=== PATIENT | female | born 1975 | race African-American/Black ===

== ENCOUNTER 2016-06-13 18:19 | Emergency (ER) | payer OTHER ==
[2016-06-13 18:25] VITALS: BP 101/60; PULSE 61; TEMP 98.1; BMI 23.2
--- NOTE | 2016-06-13 18:29 | PDOC ---
Rapid Medical Evaluation Chief Complaint: Vomiting/Diarrhea Time Seen by Provider: 06/13/16 18:24 Medical Evaluation: Allergies Allergy/AdvReac Type Severity Reaction Status Date / Time No Known Allergies Allergy Verified 06/13/16 18:25 Vital Signs Temp Pulse Resp BP Pulse Ox 98.1 F 61 20 101/60 100 06/13/16 18:21 06/13/16 18:21 06/13/16 18:21 06/13/16 18:21 06/13/16 18:21 06/13/16 18:26 I have performed a brief in-person evaluation of this patient. The patient presents with a chief complaint of: ABD pain and cramping/ diarhea x 2 weeks intermittant/ no fevers/ no recent travel/ no food ingestion Pertinent physical exam findings: well nontoxic I have ordered the following: ua/ucg/urine culture The patient will proceed to the ED for further evaluation.
[2016-06-13 19:01] LABS: URINE APPEARANCE CLOUDY; URINE BILIRUBIN NEGATIVE (NEGATIVE); URINE BLOOD NEGATIVE (NEGATIVE); URINE COLOR YELLOW; URINE GLUCOSE (UA) NEGATIVE (NEGATIVE); URINE KETONE NEGATIVE (NEGATIVE); URINE LEUK ESTERASE NEGATIVE (NEGATIVE); URINE NITRITE NEGATIVE (NEGATIVE); URINE PROTEIN NEGATIVE (NEGATIVE); URINE UROBILINOGEN 2.0 E.U/dl E.U./dl (0.2-1.0)
--- NOTE | 2016-06-13 19:49 | PDOC ---
History of Present Illness - General History Source: Patient, Old Records Exam Limitations: No Limitations - History of Present Illness Initial Comments: 06/13/16 20:10 The patient is a 40 year old female, A0, with a significant past medical history of asthma, who presents to the emergency department with abdominal pain , nausea vomiting and diarrhea for the past 2 weeks. She describes her abdominal pain as a cramping sensation, without radiation or modifying factors. She notes that she has not been able to keep much of her PO intake down. She notes that her vomit is non bilious and non bloody. She also notes that her diarrhea is watery and nonbloody, with her last bowel movement being 2 days ago. Upon evaluation, the patient was informed that urine results are positive for . She notes that this is an undesired and will terminate. The patient denies chest pain, shortness of breath, headache and dizziness. Denies fever, chills and constipation. Denies dysuria, frequency, urgency and hematuria. Allergies: None Past surgical history: None reported Social history: No alcohol, tobacco or drug use reported <Td Hernandez - Last Filed: 06/13/16 20:10> <Stephon Naranjo - Last Filed: 06/13/16 23:02> - General Chief Complaint: Vomiting/Diarrhea Stated Complaint: VOMITING/DIARRHEA Time Seen by Provider: 06/13/16 18:24 Past History <Td Hernandez - Last Filed: 06/13/16 20:10> - Past Medical History Anemia: No Asthma: Yes Cancer: No Cardiac Disorders: No CVA: No COPD: No CHF: No Dementia: No Diabetes: No GI Disorders: Yes (NAUSEA, VOMITING) Disorders: No HTN: No Hypercholesterolemia: No Liver Disease: No Seizures: No Thyroid Disease: No - Surgical History Abdominal Surgery: No Appendectomy: No Cardiac Surgery: No Cholecystectomy: No Lung Surgery: No Neurologic Surgery: No Orthopedic Surgery: No - Psycho/Social/Smoking Cessation Hx Anxiety: No Suicidal Ideation: No Smoking Status: No Smoking History: Never smoked Have you smoked in the past 12 months: No Number of Cigarettes Smoked Daily: 0 Hx Alcohol Use: Yes (SOCIAL) Drug/Substance Use Hx: No Substance Use Type: None Hx Substance Use Treatment: No <Stephon Naranjo - Last Filed: 06/13/16 23:02> - Past Medical History Allergies/Adverse Reactions: Allergies Allergy/AdvReac Type Severity Reaction Status Date / Time No Known Allergies Allergy Verified 06/13/16 18:25 Home Medications: Ambulatory Orders Albuterol Sulfate Inhaler - [Ventolin HFA Inhaler -] 1 inh PO PRN PRN 07/29/14 Cyclobenzaprine HCl [Flexeril -] 1 tab PO PRN PRN 07/29/14 Ibuprofen [Motrin -] 1 tab PO PRN PRN #0 08/26/14 Ondansetron [Zofran Odt -] 4 mg SL TID #21 od.tablet 06/13/16 Review of Systems - Review of Systems Able to Perform ROS?: Yes Comments:: 06/13/16 20:10 GENERAL/CONSTITUTIONAL: No fever or chills. No weakness. HEAD, EYES, EARS, NOSE AND THROAT: No change in vision. No ear pain or discharge. No sore throat. CARDIOVASCULAR: No chest pain or shortness of breath RESPIRATORY: No cough, wheezing, or hemoptysis. GASTROINTESTINAL: +Abdominal pain, nausea, vomiting, diarrhea. No constipation. GENITOURINARY: No dysuria, frequency, or change in urination. MUSCULOSKELETAL: No joint or muscle swelling or pain. No neck or back pain. SKIN: No rash NEUROLOGIC: No headache, vertigo, loss of consciousness, or change in strength/ sensation. ENDOCRINE: No increased thirst. No abnormal weight change HEMATOLOGIC/LYMPHATIC: No anemia, easy bleeding, or history of blood clots. ALLERGIC/IMMUNOLOGIC: No hives or skin allergy. <Td Hernandez - Last Filed: 06/13/16 20:10> *Physical Exam - Vital Signs Last Vital Signs Temp Pulse Resp BP Pulse Ox 98.1 F 61 20 101/60 100 06/13/16 18:21 06/13/16 18:21 06/13/16 18:21 06/13/16 18:21 06/13/16 18:21 - Physical Exam Comments: 06/13/16 20:10 GENERAL: Awake, alert, and fully oriented, in no acute distress HEAD: No signs of trauma, normocephalic, atraumatic EYES: PERRLA, EOMI, sclera anicteric, conjunctiva clear ENT: Auricles normal inspection, hearing grossly normal, nares patent, oropharynx clear without exudates. Moist mucosa NECK: Normal ROM, supple, no lymphadenopathy, JVD, or masses LUNGS: No distress, speaks full sentences, clear to auscultation bilaterally HEART: Regular rate and rhythm, normal S1 and S2, no murmurs, rubs or gallops, peripheral pulses normal and equal bilaterally. ABDOMEN: +Mild suprapubic and left pelvic tenderness. Soft, normoactive bowel sounds. No guarding, no rebound. No masses EXTREMITIES: Normal inspection, Normal range of motion, no edema. No clubbing or cyanosis. NEUROLOGICAL: Cranial nerves II through XII grossly intact. Normal speech, normal gait, no focal sensorimotor deficits SKIN: Warm, Dry, normal turgor, no rashes or lesions noted. <Td Hernandez - Last Filed: 06/13/16 20:10> - Vital Signs Last Vital Signs Temp Pulse Resp BP Pulse Ox 98.1 F 61 20 101/60 100 06/13/16 18:21 06/13/16 18:21 06/13/16 18:21 06/13/16 18:21 06/13/16 18:21 <Stephon Naranjo - Last Filed: 06/13/16 23:02> ED Treatment Course - ADDITIONAL ORDERS Additional order review: Laboratory Results 06/13/16 18:40 Urine Color Yellow Urine Appearance Cloudy Urine pH 7.0 Ur Specific [place] 1.018 Urine Protein Negative Urine Glucose (UA) Negative Urine Ketones Negative Urine Blood Negative Urine Nitrite Negative Urine Bilirubin Negative Urine Urobilinogen 2.0 e.u/dl H Ur Leukocyte Esterase Negative Urine HCG, Qual Positive <Td Hernandez - Last Filed: 06/13/16 20:10> - LABORATORY CBC & Chemistry Diagram: 06/13/16 20:56 06/13/16 20:56 - ADDITIONAL ORDERS Additional order review: Laboratory Results 06/13/16 18:40 Urine Color Yellow Urine Appearance Cloudy Urine pH 7.0 Ur Specific [place] 1.018 Urine Protein Negative Urine Glucose (UA) Negative Urine Ketones Negative Urine Blood Negative Urine Nitrite Negative Urine Bilirubin Negative Urine Urobilinogen 2.0 e.u/dl H Ur Leukocyte Esterase Negative Urine HCG, Qual Positive <Stephon Naranjo - Last Filed: 06/13/16 23:02> Medical Decision Making - Medical Decision Making 06/13/16 22:57 Patient is well-appearing 40-year-old female, 5 para 4, who presents with persistent nausea, and numerous bouts of nonbloody, nonbilious vomiting for the past 2 weeks. Patient's symptoms also included diarrhea which has now resolved. In the ER, patient is awake and alert, nontoxic appearing, with normal stable vital signs. Serial abdominal exams reveal no focal tenderness, there is no guarding rebound. CBC reveals significant anemia which the patient reports is chronic and is currently being investigated by Dr. Jeovanny Stephen of GI. CMP is within normal limit without evidence of acute electrolyte abnormalities. Patient has received Zofran, Pepcid, 1 L of D5 normal saline and reports improvement in level of her nausea. Patient tolerates by mouth. I've advised the patient to restart iron supplementation at this time. Will discharge with sublingual Zofran with [employer] follow-up. Patient reports that is not desirable she will most likely considered termination. <Stephon Naranjo - Last Filed: 06/13/16 23:02> *DC/Admit/Observation/Transfer - Attestations Scribe Attestion: 06/13/16 20:11 Documentation prepared by Td Hernandez, acting as senior medical writer for Stephon Naranjo MD <Td Hernandez - Last Filed: 06/13/16 20:10> - Attestations Physician Attestion: 06/13/16 22:57 The documentation was prepared by the scribe under my direct supervision. I have reviewed the documentation which correctly represents the findings, medical decision-making and critical action taken by me. <Stephon Naranjo - Last Filed: 06/13/16 23:02> Diagnosis at time of Disposition: Hyperemesis gravidarum - Discharge Dispostion Disposition: HOME Condition at time of disposition: Stable - Referrals Referrals: Ana Maria Herrera MD [Primary Care Provider] - Kal Marie MD [Staff Physician] - - Patient Instructions Printed Discharge Instructions: DI for Hyperemesis Gravidarum
[2016-06-13] MEDS ORDERED: FAMOTIDINE 20 MG/50 ML IVPB 50 ML IVPB ONE ×2 (19:58→20:17)
[2016-06-13] MEDS ORDERED: DEXTROSE 5%-NORMAL SALINE 1,000 ML IV ONE (19:58)
[2016-06-13] MEDS ORDERED: ONDANSETRON 4 MG/2 ML VIAL IVPUSH ONE (19:58)
[2016-06-13] MEDS ORDERED: ONDANSETRON 4 MG/2 ML VIAL ONE (20:16)
[2016-06-13 21:24] LABS: BASOPHIL 2.4 % (0-2.0); EOSINOPHIL 3.4 % (0-4.5); MCHC 30.9 g/dl (32.0-36.0); MEAN CELL VOLUME 63.2 fl (80-96); MEAN PLT VOLUME 9.1 fl (7.5-11.1); NEUTROPHILS 50.9 % (42.8-82.8); PLATELET COUNT 387 K/MM3 (134-434); RDW 22.3 % (11.6-15.6); WHITE BLOOD COUNT 4.1 K/mm3 (4.0-10.0)
[2016-06-13 21:32] LABS: MCH 19.5 pg (25.7-33.7)
[2016-06-13 22:09] LABS: ALBUMIN 3.4 g/dl (3.4-5.0); ANION GAP 8 (8-16); BILIRUBIN,TOTAL 0.2 mg/dL (0.2-1.0); CALCIUM 8.4 mg/dL (8.5-10.1); CO2 28 mmol/L (21-32); CREATININE 0.6 mg/dL (0.55-1.02); GLUCOSE,RANDOM 82 mg/dL (74-106); MAGNESIUM 2.1 mg/dL (1.8-2.4); SGOT/AST 12 U/L (15-37); SGPT/ALT 12 U/L (12-78); TOT PROT 7.3 g/dl (6.4-8.2)
[2016-06-13 22:10] LABS: ALK PHOS 103 U/L (45-117)
[2016-06-13 22:29] LABS: HYPOCHROMIA 3+; PLATELET ESTIMATE ADEQUATE (NORMAL); POIKILOCYTOSIS 1+
[2016-06-13 22:30] LABS: ANISOCYTOSIS 3+; FRAGMENTED CELL 1+; MICROCYTOSIS 2+; OVALOCYTES 1+
== END 2016-06-13 23:10 | disposition home or self-care (01) ==
LOC: JER 18:19
PROC: 3E033GC Introduction of Other Therapeutic Substance into Peripheral Vein, Percutaneous Approach (ICD-10-PCS; principal; 2016-06-13)
DX: O21.0 Mild hyperemesis gravidarum (principal); J45.909 Unspecified asthma, uncomplicated
CPT/HCPCS: 36415; 80053; 81003; 83735; 84703; 85025; 87086; 99283-25

== ENCOUNTER 2020-08-18 14:07 | Emergency (ER) | payer OTHER ==
[2020-08-18 14:31] VITALS: BP 93/59; PULSE 91; BMI 22.6
== END 2020-08-18 15:45 | disposition home or self-care (01) ==
LOC: JERFT 14:07
DX: N77.1 Vaginitis, vulvitis and vulvovaginitis in diseases classified elsewhere (principal)
CPT/HCPCS: 36415; 87070; 87077; 87205; 87491; 87591; 87661; 99283-25

== ENCOUNTER 2024-06-30 18:45 | Observation (INO) | payer OTHER ==
[2024-06-30 18:52] VITALS: BMI 17.6
[2024-06-30] MEDS ORDERED: PANTOPRAZOLE SODIUM 40 MG VIAL ONE (20:20)
[2024-06-30] MEDS: PANTOPRAZOLE SODIUM 40 MG VIAL IVPUSH ONE (20:48)
[2024-06-30 20:53] LABS: ABSOLUTE IMMATURE GRANULOCYTES 0.01 x10^3/uL (0.0-0.031); BASOPHILS # 0.06 x10^3/uL (0.01-0.08); EOSINOPHIL % 2.4 % (0.7-5.8); EOSINOPHILS # 0.12 x10^3/uL (0.04-0.36); HEMOGLOBIN 6.4 g/dL (11.2-15.7); MCHC 25.6 g/dl (32.2-35.5); MEAN CELL VOLUME 57.2 fl (79.4-94.8); MONOCYTE # 0.79 x10^3/uL (0.24-0.86); MONOCYTE % 15.6 % (4.7-12.5); PLATELET COUNT 565 x10^3/uL (182-369); RDW 23.3 % (12.2-17.1)
[2024-06-30 21:05] LABS: INR 1.28 (0.83-1.09)
[2024-06-30 21:06] LABS: ACTIVATED PTT 31.8 SECONDS (25.2-36.5)
[2024-06-30 21:17] LABS: POTASSIUM 3.8 mmol/L (3.5-5.1)
[2024-06-30 21:21] LABS: ALBUMIN 3.6 g/dl (3.4-5.0); BLOOD UREA NITROGEN 15.1 mg/dL (7-18); CALCIUM 8.7 mg/dL (8.5-10.1)
[2024-06-30 21:31] LABS: BILIRUBIN,TOTAL 0.3 mg/dL (0.2-1); CREATININE 0.8 mg/dL (0.55-1.3); TOT PROT 8.2 g/dl (6.4-8.2)
[2024-07-01] MEDS ORDERED: CycloBENZAprine HCL 10 MG TABLET (FP) PO PRN (01:09)
[2024-07-01] MEDS ORDERED: ALBUTEROL SO4 0.083% IH SOL 2.5 MG/3 ML VIAL.NEB. NEB PRN (01:09)
[2024-07-01 09:29] LABS: HEMATOCRIT 29.3 % (34.1-44.9); HEMOGLOBIN 7.6 g/dL (11.2-15.7); MCHC 25.9 g/dl (32.2-35.5); MEAN CELL VOLUME 61.6 fl (79.4-94.8); MEAN PLT VOLUME 9.2 fl (9.4-12.3); PLATELET COUNT 529 x10^3/uL (182-369); RDW 27.3 % (12.2-17.1)
[2024-07-01 09:30] LABS: Reticulocyte % 0.41 % (0.5-1.7)
[2024-07-01 10:05] LABS: ALBUMIN 3.6 g/dl (3.4-5.0); BLOOD UREA NITROGEN 11.7 mg/dL (7-18); CALCIUM 8.9 mg/dL (8.5-10.1)
[2024-07-01 10:08] LABS: CREATININE 0.6 mg/dL (0.55-1.3)
[2024-07-01 10:09] LABS: PHOSPHOROUS 3.4 mg/dL (2.5-4.9)
[2024-07-01 10:10] LABS: BILIRUBIN,TOTAL 0.7 mg/dL (0.2-1); TOT PROT 8.4 g/dl (6.4-8.2)
[2024-07-01] MEDS: PANTOPRAZOLE SODIUM 40 MG VIAL IVPUSH SCH (11:05)
[2024-07-01] MEDS: FAMOTIDINE 20 MG TABLET PO SCH (11:06)
[2024-07-01] MEDS: SODIUM CHLORIDE 1,000 ML IV SCH (11:11)
[2024-07-01] MEDS: POLYETHYLENE GLYCOL (HEALTHYLAX) 3350 17 GM PACKET PO SCH (13:32)
[2024-07-01] MEDS: BISACODYL 5 MG TABLET.DR (FP) PO ONE (18:36)
[2024-07-01] MEDS: PEG 3350/NA SULF BICARB CL/KCL 4000 ML SOLN.RECON PO ONE (18:43)
[2024-07-02 10:00] LABS: ABSOLUTE IMMATURE GRANULOCYTES 0.01 x10^3/uL (0.0-0.031); BASOPHILS # 0.07 x10^3/uL (0.01-0.08); EOSINOPHIL % 4.7 % (0.7-5.8); EOSINOPHILS # 0.15 x10^3/uL (0.04-0.36); HEMATOCRIT 27.3 % (34.1-44.9); HEMOGLOBIN 7.3 g/dL (11.2-15.7); MCHC 26.7 g/dl (32.2-35.5); MEAN CELL VOLUME 60.7 fl (79.4-94.8); MEAN PLT VOLUME 9.4 fl (9.4-12.3); MONOCYTE # 0.46 x10^3/uL (0.24-0.86); MONOCYTE % 14.5 % (4.7-12.5); PLATELET COUNT 482 x10^3/uL (182-369); RDW 27.1 % (12.2-17.1)
[2024-07-02 10:07] LABS: INR 1.36 (0.83-1.09); PROTHROMBIN TIME (PATIENT) 14.8 SEC (9.7-13.0)
[2024-07-02 10:22] LABS: POTASSIUM 3.8 mmol/L (3.5-5.1)
[2024-07-02 10:24] LABS: CALCIUM 8.4 mg/dL (8.5-10.1)
[2024-07-02 10:25] LABS: ALBUMIN 3.2 g/dl (3.4-5.0); BLOOD UREA NITROGEN 6.7 mg/dL (7-18)
[2024-07-02 10:28] LABS: CREATININE 0.6 mg/dL (0.55-1.3); PHOSPHOROUS 3.5 mg/dL (2.5-4.9)
[2024-07-02 10:29] LABS: BILIRUBIN,TOTAL 0.5 mg/dL (0.2-1); TOT PROT 7.4 g/dl (6.4-8.2)
[2024-07-02 13:53] VITALS: RESP 18
[2024-07-02] MEDS: PANTOPRAZOLE SODIUM 40 MG VIAL IVPUSH ONE (14:08)
[2024-07-02] MEDS ORDERED: DEXTROSE 5%-LACTATED RINGERS 1,000 ML IV SCH (14:15)
[2024-07-02] MEDS: PANTOPRAZOLE SODIUM 40 MG VIAL IVPUSH SCH (21:43)
[2024-07-03] MEDS: LIDOCAINE 5% TOPICAL PATCH TP SCH (13:04)
[2024-07-03] MEDS: IRON SUCROSE INJECTION 200 MG in SODIUM CHLORIDE 100 ML IVPB ONE (14:20)
[2024-07-03] MEDS ORDERED: LIDOCAINE PATCH REMOVAL MC SCH (22:00)
[2024-07-03 23:03] VITALS: BP 112/68; PULSE 68; TEMP 98.1
== END 2024-07-04 00:42 | disposition short-term general hospital (02) ==
LOC: JER 18:45 → INTOOBSV 07-01 00:45 → JERBED 07-01 00:45 → UNDOADMOB 07-01 00:45 → J5S 07-01 01:54 → JERBED 07-01 01:54 → J5S 07-01 11:40
PROVIDERS: ADMIT Hospitalist
PROC: 30233N1 Transfusion of Nonautologous Red Blood Cells into Peripheral Vein, Percutaneous Approach (ICD-10-PCS; principal; 2024-07-01)
PROC: 0DJD8ZZ Inspection of Lower Intestinal Tract, Via Natural or Artificial Opening Endoscopic (ICD-10-PCS; 2024-07-01)
PROC: 0DJ08ZZ Inspection of Upper Intestinal Tract, Via Natural or Artificial Opening Endoscopic (ICD-10-PCS; 2024-07-01)
PROC: 3E033GC Introduction of Other Therapeutic Substance into Peripheral Vein, Percutaneous Approach (ICD-10-PCS; 2024-07-01)
DX: K22.2 Esophageal obstruction (principal); D50.9 Iron deficiency anemia, unspecified; Z86.0100 Personal history of colon polyps, unspecified; R13.10 Dysphagia, unspecified; R19.5 Other fecal abnormalities; J45.909 Unspecified asthma, uncomplicated; D12.0 Benign neoplasm of cecum; R63.4 Abnormal weight loss
CPT/HCPCS: 0241U-QW; 36415; 36430; 70490-TC; 71045-TC-FY; 71250-TC; 74176-TC; 74178-TC; 74220-TC-FY; 80048; 80053; 82728; 83540; 83550; 83735; 84100; 84703; 85025; 85027; 85610; 85730; 86850; 86900; 86901; 86922; 93005; 93010; 96365; 96375; 96376; 99285-25; G0378; J1756; P9058